=== PATIENT | female | born 1970 | race Caucasian/White ===

== ENCOUNTER 2022-03-06 20:42 | Emergency (ER) | payer MEDICAID, OTHER ==
[~2022-03-06] VITALS: Ht 172.7 cm; Wt 98.7 kg
[2022-03-06] MEDS ORDERED: KETOROLAC 30MG/ML VIAL IV STA (21:46)
[2022-03-06] MEDS ORDERED: LISINOPRIL 10MG TABLET PO ONE (22:00)
[2022-03-06 22:37] LABS: BASOPHILS % 0.6 % (0.0-2.0); CHLORIDE 98 mEq/L (98-107); EOSINOPHILS % 2.2 % (0.0-5.0); HEMATOCRIT. 40.9 % (36.0-48.0); HEMOGLOBIN. 13.9 g/dL (12.0-16.0); LYMPHOCYTES % 28.7 % (20.0-50.0); MEAN CORPUSCULAR HEMOGLOBIN 30.5 pg (28.0-32.0); MEAN CORPUSCULAR VOLUME 89.8 fL (81.0-99.0); MEAN PLATELET VOLUME 8.6 fl (7.4-10.4); MONOCYTES % 6.5 % (2.0-8.0); PLATELET 292 x1000/uL (130-400); RED BLOOD CELL COUNT 4.56 mill/uL (4.2-5.4); RED CELL DISTRIBUTION WIDTH 12.3 % (11.6-14.6)
[2022-03-06] MEDS ORDERED: TRAM50TA3 MT (23:40)
[2022-03-06] MEDS ORDERED: LISI10TA26 MT (23:40)
[2022-03-07] VITALS: BP 163/103
== END 2022-03-07 00:48 | disposition home or self-care (01) ==
LOC: ER 20:42
DX: S89.92XA Unspecified injury of left lower leg, initial encounter (principal); I10 Essential (primary) hypertension; X58.XXXA Exposure to other specified factors, initial encounter; Y93.89 Activity, other specified; Y92.89 Other specified places as the place of occurrence of the external cause; Y99.8 Other external cause status; E11.65 Type 2 diabetes mellitus with hyperglycemia
CPT/HCPCS: 36415; 73562; 80048; 84550; 85025; 96374; 99284; J1885; L1830

== ENCOUNTER 2025-02-21 10:50 | Emergency (ER) | payer MEDICAID, OTHER ==
[~2025-02-21] VITALS: Ht 172.7 cm; Wt 85.0 kg
[~2025-02-21 10:50] MED LIST: LISI10TA26 MT; TRAM50TA3 MT
[2025-02-21 11:00] VITALS: O2SAT 100
[2025-02-21] MEDS ORDERED: IBUP-2028 MT (12:31)
[2025-02-21] MEDS: HYDROCODONE/ACETAMINOPHEN 5/325MG TABLET PO ONE (13:08)
[2025-02-21 13:47] VITALS: BP 201/103; PULSE 88; RESP 18; TEMP 36.6; O2SAT 97
== END 2025-02-21 13:52 | disposition home or self-care (01) ==
LOC: ER 11:00
DX: S83.90XA Sprain of unspecified site of unspecified knee, initial encounter (principal); E11.9 Type 2 diabetes mellitus without complications; I10 Essential (primary) hypertension; Z79.899 Other long term (current) drug therapy; W18.30XA Fall on same level, unspecified, initial encounter; Y93.89 Activity, other specified; Y92.89 Other specified places as the place of occurrence of the external cause; Y99.8 Other external cause status
CPT/HCPCS: 73562; 29505; 99283; Z7610